=== PATIENT | female | born 1970 | race Caucasian/White ===

== ENCOUNTER → 2023-10-11 17:52 | Outpatient (REF) | payer BC, SELFPAY | LOC: WDC 17:52 | PROVIDERS: ATTENDING PHYSICIAN Family Medicine | DX: Z12.31 Encounter for screening mammogram for malignant neoplasm of breast (principal) | CPT/HCPCS: 77063; 77067 ==

== ENCOUNTER 2024-10-04 06:27 | Day surgery (SDC) | payer BC, SELFPAY | END 2024-10-04 08:28 | disposition home or self-care (01) | LOC: GI 06:27 | PROVIDERS: ATTENDING PHYSICIAN Internal Medicine Gastroenterology | DX: Z12.11 Encounter for screening for malignant neoplasm of colon (principal); K64.0 First degree hemorrhoids; Z86.0100 Personal history of colon polyps, unspecified | CPT/HCPCS: G0105 ==

== ENCOUNTER → 2024-10-14 17:48 | Outpatient (REF) | payer BC, SELFPAY | LOC: WDC 17:48 | PROVIDERS: ATTENDING PHYSICIAN Obstetrics & Gynecology Gynecology; FAMILY PHYSICIAN Family Medicine | DX: Z12.31 Encounter for screening mammogram for malignant neoplasm of breast (principal) | CPT/HCPCS: 77063; 77067 ==